=== PATIENT | female | born 1960 | race Caucasian/White ===

== ENCOUNTER 2021-09-03 15:01 | Inpatient (IN) ==
--- NOTE | 2021-09-03 15:33 | Emergency Department Note ---
Impression & Plan Fall due to ice or snow, Tibial plateau fracture, right, Fracture of neck of fibula, Fracture of distal end of fibula ED Provider Note CHIEF COMPLAINT: Fall HISTORY OF PRESENT ILLNESS: Autumn Gimenez is a 60 year old female who presents to the Emergency Department via EMS for evaluation of after suffering a fall approximately 4 hours prior to arrival. At the time of onset, the patient was shoveling snow off of her wooden deck when she slipped on ice and fell onto her right side. She denies hitting her head or losing consciousness during the episode but had significant pain to her right shoulder, wrist, knee, baker and ankle. She was able to crawl over to the table that was on her deck but was not able to pull herself up. After calling for her for about 10 minutes, he saw her outside and was able to help her inside, though she states that she was unable to place any weight on her right leg secondary to pain. The patient sat on a chair to rest and took a dose of Tylenol, however, as her pain did not improve and she was unable to move from the chair, EMS was called and brought her to the ED for further evaluation. Currently, she rates her discomfort as a 10/10 which worsens with attempts of movement. The patient otherwise denies pain to her head, neck, chest, abdomen, pelvis, RUE or RLE. She does have mild pain to her lower back from when she slipped on ice and caught herself several days ago, but unchanged since the fall today. No numbness/tingling. She does not take any anticoagulants/antiplatelets. REVIEW OF SYSTEMS: 10 systems were reviewed and were negative unless otherwise stated in HPI as above PHYSICAL EXAM: VITALS: Vitals are noted on the nurse's note and reviewed by myself. Vital signs stable. General: Resting in bed, no acute distress HEENT: Normocephalic, atraumatic, PERRL, EOMI, oropharynx clear Neck: No mid-line cervical tenderness, ROM intact without pain Resp: Good inspiratory effort on room air, lung sounds clear bilaterally, no tenderness to palpation of the chest wall CV: Regular rate and rhythm, peripheral pulses palpated Back: No midline tenderness to the thoracic spine, no midline tenderness to the lumbar spine, no obvious step-offs or deformities, mild tenderness to palpation of the lower perispinal musculature (unchanged today) Abd: Soft, non-tender to palpation MSK: RUE: Edema about the right wrist with tenderness to palpation especially over the radial aspect. Able to move fingers, sensation and radial pulse intact. ROM of the wrist limited secondary to pain. Tender to palpation over the anterior right shoulder and ROM limited secondary to pain. No tenderness to palpation of the humerus, elbow or proximal forearm. RLE: Edema about the knee and ecchymosis/edema over the lateral ankle with tenderness to palpation over the knee, tib/fib and ankle. ROM of the knee and ankle limited secondary to pain, able to move toes, sensation and d/p pulse intact. No tenderness to palpation of the hip or thigh. LUE/LLE: No tenderness to palpation, ROM intact without pain, sensation and radial/d/p pulses intact. Neuro: Awake, alert and oriented x 3, interacting and answering questions appropriately Differential diagnosis includes fracture, subluxation, dislocation, contusion, ligamentous injury, neurovascular, as well as other pathologies were considered EMERGENCY DEPARTMENT COURSE: Physical exam and history were performed. Nursing triage notes, EMR, and medication list were personally reviewed. Patient appears to have pain to her right shoulder, wrist, knee, and ankle after suffering a fall onto her right side when she slipped on ice approximately 4 hours prior to arrival. She denied hitting her head or losing consciousness during the episode. Additional history as described above. See exam as above. The patient was offered pain medication but initially declined. X-rays were obtained of the right shoulder/wrist and were reviewed by radiologist and myself as below. Images were negative for acute fractures, dislocations or other bony abnormalities. X-rays were also obtained of the right knee, tib/fib and ankle, also reviewed by radiologist and myself as below. Of note, she did have a comminuted, nondisplaced fracture involving the tibial plateau with intra-articular effusion at the knee joint. She was also noted to have an oblique fracture to the distal fibula. Upon reevaluation, the patient was still having discomfort and now agreed for a dose of pain medication. She was given Toradol 15 mg. I discussed the results of the above findings with her at bedside. I did contact Dr. Lujan of orthopedics and discussed her case as well. He suggested placing the patient in a long-leg splint and stated that she would be okay to follow-up with Dr. Valdovinos who she currently follows with in his office tomorrow. I did obtain a CAT scan of the patient's right knee to further evaluate the fracture pattern. This did revisualize the tibial plateau fracture but also showed an impacted, nondisplaced fracture of the neck of the fibula. The patient was placed in an Ortho-Glass splint as follows: Splint placement: Splint: Right long leg Ortho-Glass Indication: Right tibial plateau fracture, right fibular neck fracture, right distal fibular fracture Ortho-Glass splint was applied by the ED nursery technician under my supervision. Neurovascular status reassessed by myself status post splint placement and was intact. After the patient was placed in a splint, she was having additional pain and was given a dose of oxycodone 5 mg. Nursing staff did attempt to help her up to use the walker several times, however she was having too much pain in her right wrist to support herself and was unable to ambulate. We did attempt to place a splint on her right wrist as well for extra support, however she was still unable to get up. Due to her ambulatory dysfunction[facility] and agreed to evaluate her for ongoing management. The patient verbalized her understanding and agreement with the above treatment plan. The chart was completed utilizing [employer] Speech Voice Recognition Software. Grammatical errors, random word insertions, pronoun errors, and incomplete sentences are an occasional consequence of this system due to software limitations, ambient noise, and hardware issues. Any formal questions or concerns about the content, text, or information contained within the body of this dictation should be directly addressed to the provider for clarification. Past Med/Surg History Medical History Medial meniscus tear Tendinitis of right rotator cuff Surgical History No pertinent past surgical history Social History Smoking Status: Current every day smoker Tobacco Type: Cigarettes Feels Safe at Home: Yes Allergies Allergies Allergy/AdvReac Type Severity Reaction Status Date / Time No Known Allergies Allergy Verified 09/03/21 16:21 Home Meds Previous Rx's Medication Instructions Recorded oxycodone 5 mg tablet 5 mg PO Q4H PRN #18 tab 09/03/21 Results & Data (ED) Vital Signs Vital Signs - 24 hr 09/03/21 15:12 09/03/21 16:34 09/03/21 20:00 Temperature 37.2 C Temperature Source Oral Pulse Rate 94 H Pulse Rate [Left] 88 74 Pulse Rhythm Regular Pulse Rhythm [Left] Regular Regular Pulse Strength Normal Pulse Strength [Left] Normal Normal Respiratory Rate 16 18 18 Respiratory Effort / Characteristics Non-Labored Spontaneous Non-Labored Spontaneous Non-Labored Respiratory Depth Normal Normal Normal Respiratory Pattern Regular Blood Pressure 114/77 Blood Pressure [Left Arm] 120/71 124/74 Blood Pressure Mean 89 Blood Pressure Mean [Left Arm] 87 90 Blood Pressure Position Lying Blood Pressure Position [Left Arm] Lying Lying Pulse Oximetry 98 94 98 Oxygen Delivery Method Room Air Room Air Room Air Sepsis Recent Fever Within 48 Hours No Sepsis New/Unexplained Change in Mental Status N/A Sepsis Action Taken by Nursing No Action Required 09/03/21 23:00 09/04/21 00:06 Temperature Temperature Source Pulse Rate Pulse Rate [Left] 90 95 H Pulse Rhythm Pulse Rhythm [Left] Pulse Strength Pulse Strength [Left] Respiratory Rate 16 20 Respiratory Effort / Characteristics Respiratory Depth Respiratory Pattern Blood Pressure Blood Pressure [Left Arm] 129/78 108/77 Blood Pressure Mean Blood Pressure Mean [Left Arm] 95 87 Blood Pressure Position Blood Pressure Position [Left Arm] Pulse Oximetry 95 95 Oxygen Delivery Method Room Air Room Air Sepsis Recent Fever Within 48 Hours Sepsis New/Unexplained Change in Mental Status Sepsis Action Taken by Nursing Laboratory Data Lab Results 09/03/21 Range/Units 22:00 SARS-CoV-2, RNA, NAAT NEGATIVE (NEGATIVE) Administered Medications Discontinued Medications Ketorolac Tromethamine (Ketorolac Tromethamine 15 Mg/Ml Vial) 15 mg IV NOW ONE Stop: 09/03/21 17:18 Last Admin: 09/03/21 17:40 Dose: 15 mg Documented by: [id number] Oxycodone HCl (Oxycodone Ir Home Pack) 1 homepack PO UD ONE Stop: 09/03/21 19:37 Last Admin: 09/03/21 22:59 Dose: Not Given Documented by: [id number] Oxycodone HCl (Oxycodone Hcl Ir 5 Mg Tab (Immediate Release)) 5 mg PO NOW STA Stop: 09/03/21 20:44 Last Admin: 09/03/21 20:48 Dose: 5 mg Documented by: [id number] Imaging Data Radiologist's Impression: Ankle X-Ray 09/03/21 15:20 XR ankle RT min 3V routine, XR tibia fibula RT 2V, XR knee RT 1 or 2V routine CLINICAL HISTORY: fall, pain. COMPARISON STUDY: No previous studies for comparison. TECHNIQUE: 3 right knee, AP and lateral right tibia and fibula and 3 right ankle views FINDINGS: Bones: There is a comminuted, nondisplaced fracture of the tibial plateau with transverse and vertical component seen particularly medially. There is no evidence for significant cortical offset at the articular margin of the knee joint. There is a moderate size intra-articular effusion. There is a second, oblique fracture present involving the distal fibular metadiaphysis. It is nondisplaced. The remainder of the tibia and fibula are intact. There is no lytic or blastic lesion. Joints: The ankle joint space is maintained. The bones are in anatomic alignment. Soft tissues: There is no focal soft tissue abnormality. There is no radiopaque foreign body. IMPRESSION: 1. Comminuted, nondisplaced fracture involving the tibial plateau. 2. Oblique fracture of the distal femur metadiaphysis. 3. Intra-articular effusion at the knee joint. ACT 112: Negative or not required by law. Electronically signed by: Cem Oconnor M.D. 09/03/2021 4:48 PM Knee X-Ray 09/03/21 15:20 XR ankle RT min 3V routine, XR tibia fibula RT 2V, XR knee RT 1 or 2V routine CLINICAL HISTORY: fall, pain. COMPARISON STUDY: No previous studies for comparison. TECHNIQUE: 3 right knee, AP and lateral right tibia and fibula and 3 right ankle views FINDINGS: Bones: There is a comminuted, nondisplaced fracture of the tibial plateau with transverse and vertical component seen particularly medially. There is no evidence for significant cortical offset at the articular margin of the knee joint. There is a moderate size intra-articular effusion. There is a second, oblique fracture present involving the distal fibular metadiaphysis. It is nondisplaced. The remainder of the tibia and fibula are intact. There is no lytic or blastic lesion. Joints: The ankle joint space is maintained. The bones are in anatomic alignment. Soft tissues: There is no focal soft tissue abnormality. There is no radiopaque foreign body. IMPRESSION: 1. Comminuted, nondisplaced fracture involving the tibial plateau. 2. Oblique fracture of the distal femur metadiaphysis. 3. Intra-articular effusion at the knee joint. ACT 112: Negative or not required by law. Electronically signed by: Cem Oconnor M.D. 09/03/2021 4:48 PM Shoulder X-Ray 09/03/21 15:20 XR shoulder RT min 2V routine CLINICAL HISTORY: Fall, pain. COMPARISON STUDY: No previous studies for comparison. TECHNIQUE: 3 right shoulder views FINDINGS: Bones: Bones are osteopenic. There is no evidence for an acute fracture or dislocation. There is no lytic or blastic lesion. Joints: Mild degenerative changes are seen involving the acromioclavicular joint. The bones are in anatomic alignment. Soft tissues: There is no focal soft tissue abnormality. There is no radiopaque foreign body. IMPRESSION: No acute osseous pathology. Osteopenia with mild degenerative change at the AC joint. ACT 112: Negative or not required by law. Electronically signed by: Cem Oconnor M.D. 09/03/2021 4:57 PM Tibia/Fibula X-Ray 09/03/21 15:20 XR ankle RT min 3V routine, XR tibia fibula RT 2V, XR knee RT 1 or 2V routine CLINICAL HISTORY: fall, pain. COMPARISON STUDY: No previous studies for comparison. TECHNIQUE: 3 right knee, AP and lateral right tibia and fibula and 3 right ankle views FINDINGS: Bones: There is a comminuted, nondisplaced fracture of the tibial plateau with transverse and vertical component seen particularly medially. There is no evidence for significant cortical offset at the articular margin of the knee joint. There is a moderate size intra-articular effusion. There is a second, oblique fracture present involving the distal fibular metadiaphysis. It is nondisplaced. The remainder of the tibia and fibula are intact. There is no lytic or blastic lesion. Joints: The ankle joint space is maintained. The bones are in anatomic alignment. Soft tissues: There is no focal soft tissue abnormality. There is no radiopaque foreign body. IMPRESSION: 1. Comminuted, nondisplaced fracture involving the tibial plateau. 2. Oblique fracture of the distal femur metadiaphysis. 3. Intra-articular effusion at the knee joint. ACT 112: Negative or not required by law. Electronically signed by: Cem Oconnor M.D. 09/03/2021 4:48 PM Wrist X-Ray 09/03/21 15:21 XR wrist RT min 3V routine CLINICAL HISTORY: fall, pain. COMPARISON STUDY: No previous studies for comparison. TECHNIQUE: 4 right wrist views FINDINGS: Bones: There is no evidence for an acute fracture or dislocation. There is no lytic or blastic lesion. Joints: The joint spaces are maintained. The bones are in anatomic alignment. Soft tissues: There is no focal soft tissue abnormality. There is no radiopaque foreign body. IMPRESSION: No acute osseous pathology. ACT 112: Negative or not required by law. Electronically signed by: Cem Oconnor M.D. 09/03/2021 4:[address] 09/03/21 17:11 CT knee RT wo con CLINICAL HISTORY: Follow-up right tibial plateau fracture. Status post fall with right knee pain COMPARISON STUDY: Standard radiographs of the knee from 09/03/2021 CT DOSE: 171.87 mGy.cm TECHNIQUE: Standard CT of the right knee is performed without IV contrast. Multiplanar reconstruction is performed. A dose lowering technique was utilized adhering to the principles of ALARA. FINDINGS: Bones: There is seen radiographically, there is a comminuted, essentially nondisplaced fracture of the tibial plateau. Vertically oriented nondisplaced fractures seen involving the inner aspect of the lateral tibial plateau. It extends posteriorly. Oblique comminuted fracture of the medial tibial plateau is also present which is again essentially nondisplaced. There is also a nondisplaced, impacted fracture of the proximal fibular neck. There are no lytic or blastic lesions. Joints: The joint spaces are maintained. There is a large intra-articular effusion. The bones are in anatomic alignment. Soft tissues: There is no focal soft tissue swelling. There are no focal fluid collections. IMPRESSION: 1. Comminuted, essentially nondisplaced fracture of the tibial plateau as described above. 2. There is also an impacted, nondisplaced fracture of the neck of the fibula. 3. Large intra-articular effusion. ACT 112: Negative or not required by law. Electronically signed by: Cem Oconnor M.D. 09/03/2021 6:44 PM Discharge Plan Visit Data Chief Complaint: Fall Stated Complaint: FALL, R WRIST, KNEE, SHOULDER & ANKLE PAIN ED Provider: Carlyn Mathew ED Midlevel Provider: Renetta Shearer Discharge Problem: Fall due to ice or snow, Tibial plateau fracture, right, Fracture of neck of fibula, Fracture of distal end of fibula Patient Disposition: Admitted As Inpatient Condition: Good Prescriptions Prescriptions: New oxycodone 5 mg tablet 5 mg PO Q4H PRN (Reason: pain) Qty: 18 RF: 0 Referrals Referrals: Zhen Lujan MD [Physician] - Gurdeep Freeman DO [Primary Care Provider] - Discharge Problem: Fall due to ice or snow Qualifiers: Encounter type: initial encounter Qualified Code(s): W00.9XXA - Unspecified fall due to ice and snow, initial encounter Tibial plateau fracture, right Qualifiers: Encounter type: initial encounter Fracture type: closed Qualified Code(s): S82.141A - Displaced bicondylar fracture of right tibia, initial encounter for closed fracture Fracture of neck of fibula Qualifiers: Encounter type: initial encounter Fracture type: closed Laterality: right Qualified Code(s): S82.831A - Other fracture of upper and lower end of right fibula, initial encounter for closed fracture
--- NOTE | 2021-09-03 16:50 | XRay Report ---
XR ankle RT min 3V routine, XR tibia fibula RT 2V, XR knee RT 1 or 2V routine CLINICAL HISTORY: fall, pain. COMPARISON STUDY: No previous studies for comparison. TECHNIQUE: 3 right knee, AP and lateral right tibia and fibula and 3 right ankle views FINDINGS: Bones: There is a comminuted, nondisplaced fracture of the tibial plateau with transverse and vertica l component seen particularly medially. There is no evidence for significant cortical offset at the a rticular margin of the knee joint. There is a moderate size intra-articular effusion. There is a second, oblique fracture present involving the distal fibular metadiaphysis. It is nondisp laced. The remainder of the tibia and fibula are intact. There is no lytic or blastic lesion. Joints: The ankle joint space is maintained. The bones are in anatomic alignment. Soft tissues: There is no focal soft tissue abnormality. There is no radiopaque foreign body. IMPRESSION: 1. Comminuted, nondisplaced fracture involving the tibial plateau. 2. Oblique fracture of the distal femur metadiaphysis. 3. Intra-articular effusion at the knee joint. ACT 112: Negative or not required by law. Electronically signed by: Cem Oconnor M.D. 09/03/2021 4:48 PM
--- NOTE | 2021-09-03 16:58 | XRay Report ---
XR shoulder RT min 2V routine CLINICAL HISTORY: Fall, pain. COMPARISON STUDY: No previous studies for comparison. TECHNIQUE: 3 right shoulder views FINDINGS: Bones: Bones are osteopenic. There is no evidence for an acute fracture or dislocation. There is no l ytic or blastic lesion. Joints: Mild degenerative changes are seen involving the acromioclavicular joint. The bones are in an atomic alignment. Soft tissues: There is no focal soft tissue abnormality. There is no radiopaque foreign body. IMPRESSION: No acute osseous pathology. Osteopenia with mild degenerative change at the AC joint. ACT 112: Negative or not required by law. Electronically signed by: Cem Oconnor M.D. 09/03/2021 4:57 PM
--- NOTE | 2021-09-03 17:00 | XRay Report ---
XR wrist RT min 3V routine CLINICAL HISTORY: fall, pain. COMPARISON STUDY: No previous studies for comparison. TECHNIQUE: 4 right wrist views FINDINGS: Bones: There is no evidence for an acute fracture or dislocation. There is no lytic or blastic lesion . Joints: The joint spaces are maintained. The bones are in anatomic alignment. Soft tissues: There is no focal soft tissue abnormality. There is no radiopaque foreign body. IMPRESSION: No acute osseous pathology. ACT 112: Negative or not required by law. Electronically signed by: Cem Oconnor M.D. 09/03/2021 4:59 PM
[2021-09-03] MEDS ORDERED: KETOROLAC TROMETHAMINE 15 MG/ML VIAL IV ONE (17:17)
--- NOTE | 2021-09-03 18:46 | CT Scan Report ---
CT knee RT wo con CLINICAL HISTORY: Follow-up right tibial plateau fracture. Status post fall with right knee pain COMPARISON STUDY: Standard radiographs of the knee from 09/03/2021 CT DOSE: 171.87 mGy.cm TECHNIQUE: Standard CT of the right knee is performed without IV contrast. Multiplanar reconstruction is performed. A dose lowering technique was utilized adhering to the principles of ALARA. FINDINGS: Bones: There is seen radiographically, there is a comminuted, essentially nondisplaced fracture of th e tibial plateau. Vertically oriented nondisplaced fractures seen involving the inner aspect of the l ateral tibial plateau. It extends posteriorly. Oblique comminuted fracture of the medial tibial plate au is also present which is again essentially nondisplaced. There is also a nondisplaced, impacted fracture of the proximal fibular neck. There are no lytic or b lastic lesions. Joints: The joint spaces are maintained. There is a large intra-articular effusion. The bones are in anatomic alignment. Soft tissues: There is no focal soft tissue swelling. There are no focal fluid collections. IMPRESSION: 1. Comminuted, essentially nondisplaced fracture of the tibial plateau as described above. 2. There is also an impacted, nondisplaced fracture of the neck of the fibula. 3. Large intra-articular effusion. ACT 112: Negative or not required by law. Electronically signed by: Cem Oconnor M.D. 09/03/2021 6:44 PM
[2021-09-03] MEDS ORDERED: oxyCODONE IR HOME PACK PO ONE (19:36)
[2021-09-03] MEDS ORDERED: oxyCODONE HCL IR 5 MG TAB (IMMEDIATE RELEASE) PO STA (20:43)
[2021-09-04] MEDS ORDERED: ACETAMINOPHEN 325 MG TAB PO PRN (00:54)
[2021-09-04] MEDS ORDERED: ONDANSETRON INJ 2 MG/ML 2 ML VIAL IV PRN (00:54)
[2021-09-04] MEDS ORDERED: D5W AND NSS 1,000 ML IV SCH (00:54)
[2021-09-04] MEDS ORDERED: POLYETHYLENE (MIRALAX) 17 GM PACK PO PRN (00:54)
[2021-09-04] MEDS: ZOLPIDEM TARTRATE 5 MG TAB PO PRN (01:55)
--- NOTE | 2021-09-04 02:43 | History and Physical Report ---
DATE OF ADMISSION: 09/03/2021. CHIEF COMPLAINT: Status post fall and right tibial plateau fracture and distal femur fracture. HISTORY OF PRESENT ILLNESS: This is a 60-year-old female with past medical history significant for obesity. Presents with a fall at home. She fell on the deck in the ice and she was having difficulty ambulating and brought in here and found to have right distal femur fracture and tibial plateau fracture. ER discussed with orthopedics who recommended a long splint, which was placed. The patient wanted to go home, but she was also having pain in the shoulder and the right wrist and she was not able to ambulate with a walker. So, we were called for admission. Somewhat tearful that she was not able to go home. She says she was never in the hospital before. About 10 days ago, she almost slipped from the deck and has back pain and she was taking [id number] pain medications. Other than that, she was not taking any other medications. Currently hemodynamics are stable. While resting, pain is okay. Denies any headache. She did not hit her head and no headache, no blurred visions, no runny nose, no sore throat, no cough, no chest pain, no shortness of breath, no nausea, no vomiting, no abdominal pain. Normal bowel and bladder movements. Before the fall, otherwise ambulatory status was good. ALLERGIES: No known drug allergies. PAST MEDICAL HISTORY: As mentioned above. PAST SURGICAL HISTORY: Colonoscopy. MEDICATIONS: None. FAMILY HISTORY: Significant for father had skin cancer, mother has diabetes and hypertension, paternal grandfather has diabetes. SOCIAL HISTORY: . Smokes half pack a day. No alcohol, no drug use. REVIEW OF SYSTEMS: As per HPI. Rest of the review of systems is negative. PHYSICAL EXAMINATION: GENERAL: The patient is of moderate build, not in acute distress. VITAL SIGNS: Temperature 37.2, pulse 74, respiratory rate 18, blood pressure 124/74, oxygen 98% on room air. HEENT: Pupils equal, round and reactive to light. Oral mucosa moist. NECK: No JVD, no neck masses. CARDIOVASCULAR: S1 and S2 heard. Regular rate and rhythm. No murmur, no gallop. RESPIRATORY SYSTEM: Normal AP diameter. No accessory muscle use. No wheezing, no crackles. ABDOMEN: Soft, bowel sounds present, nontender, no distention. CENTRAL NERVOUS SYSTEM: Alert and oriented. No facial droop. Speech is clear. Insight is good. EXTREMITIES: Right lower extremity is in a long splint. Able to move her left lower extremity. No edema seen in the left lower extremity. LABORATORY DATA: SARS-CoV-2 negative. IMAGING STUDIES: Right CT scan of the knee, comminuted essentially nondisplaced fracture of the tibial plateau, nondisplaced fracture of neck of the fibula. Wrist x-ray of the right, no acute findings. Tibia and fibula x-ray on the right side, nondisplaced fracture involving the tibial plateau. Oblique fracture of the distal femur metadiaphysis. Intra-articular effusion of the knee joint. Right shoulder x-ray, no acute findings. Knee x-ray of the right side, comminuted nondisplaced fracture involving the tibial plateau. ASSESSMENT AND PLAN: This is a 60-year-old female who presents with a fall and found to have right distal femur fracture, tibial plateau fracture, and nondisplaced fracture of the neck of the fibula. 1. Right distal femur fracture, right fracture of the neck of the fibula, right tibial plateau fracture, status post long splint. Since she also had injury to the right wrist and shoulder, she is not able to ambulate with a walker. So we are admitting the patient for possible rehab placement. PT/OT. Social service to help with discharge planning. We will consult orthopedics while the patient is in the hospital. Pain control, gentle fluids. 2. Deep venous thrombosis prophylaxis: Lovenox. DISPOSITION: Admit to medical floor. Social service to help with discharge planning. Job ID: [id number] [facility]
[2021-09-04] MEDS: oxyCODONE HCL IR 5 MG TAB (IMMEDIATE RELEASE) PO PRN (05:44)
[2021-09-04 06:44] LABS: Basophils # (auto) 0.01 K/uL (0-0.2); Basophils % (auto) 0.1 %; Eosinophils # (auto) 0.05 K/uL (0-0.5); Eosinophils % (auto) 0.5 %; Hematocrit (blood only) 39.5 % (37-47); Hemoglobin 13.1 g/dL (12.0-16.0); Immature Granulocytes # (auto) 0.03 K/uL (0.00-0.02); Immature Granulocytes % (auto) 0.3 %; Lymphocytes # (auto) 3.24 K/uL (1.2-3.4); Lymphocytes % (auto) 30.4 %; Mean Corpuscular Hemoglobin 30.3 pg (25-34); Mean Corpuscular Hgb Conc 33.2 g/dL (32-36); Mean Corpuscular Volume 91.4 fL (80-100); Mean Platelet Volume 10.9 fL (7.4-10.4); Monocytes # (auto) 1.17 K/uL (0.11-0.59); Neutrophils # (auto) 6.17 K/uL (1.4-6.5); Neutrophils % (auto) 57.7 %; Platelet Count 204 K/uL (130-400); RDW Coefficient of Variation 15.1 % (11.5-14.5); RDW Standard Deviation 50.8 fL (36.4-46.3); Red Blood Count 4.32 M/uL (4.2-5.4); White Blood Count 10.67 K/uL (4.8-10.8)
[2021-09-04 06:55] LABS: BUN Creatinine Ratio 44.4 (10-20); Calcium 8.4 mg/dl (8.5-10.1); Creatinine Clr Calc Pharmacy 144.5 ml/min; Est GFR (Non-African American) 110.4 ml/min; Magnesium 1.7 mg/dl (1.7-2.4); Potassium 3.6 mmol/L (3.5-5.1)
[2021-09-04] MEDS: ACETAMINOPHEN 325 MG TAB PO SCH ×3 (08:36→20:12)
[2021-09-04] MEDS: ENOXAPARIN INJ 40 MG/0.4 ML SYR SQ SCH (09:02)
[2021-09-04] MEDS: LIDOCAINE 5% 1 PATCH TD SCH (11:19)
[2021-09-04] MEDS: SODIUM CHLORIDE 0.9% 1000ML 1,000 ML IV SCH (11:19)
--- NOTE | 2021-09-04 13:58 | Hospitalist Progress Note ---
Date of Service September 04, 2021 Assessment & Plan (1) Fall due to ice or snow: (2) Tibial plateau fracture, right: (3) Fracture of neck of fibula: Plan: ASSESSMENT AND PLAN: This is a 60-year-old female who presents with a fall and found to have right distal femur fracture, tibial plateau fracture, and nondisplaced fracture of the neck of the fibula. 1. Right distal femur fracture, right fracture of the neck of the fibula, right tibial plateau fracture, status post long splint. Right shoulder, wrist pain Status post fall Patient still having significant pain at this time Scheduled Tylenol, as needed tramadol and oxycodone Gentle IV fluids Lovenox for DVT prophylaxis May need further imaging/MRI of the right shoulder Will defer further imaging to orthopedic service Continue PT/OT 2. Deep venous thrombosis prophylaxis: Lovenox. DISPOSITION: Pending May need rehab plan of care discussed with patient in detail and at length all questions answered she is understanding, agreeable, comfortable with the plan of care Admission and Anticipated Discharge Date Admission Date: September 03, 2021 Subjective Follow-up for right knee fracture, right shoulder, right wrist pain, status post fall Seen resting in bed, not in distress Very pleasant, reports significant discomfort of the right shoulder and right wrist, with full range of motion due to pain Also reporting significant pain over the right knee, with full range of motion Otherwise, no chest pain, palpitations, dizziness Denies head trauma, no headache, nausea, fever/chills No other symptoms Review of Systems Review of Systems: all noted and negative except for above Physical Exam Physical Exam: General- oriented x 3, not in distress, speaks in sentences with no effort or accessory muscle use Head- atraumatic Eyes- PERRL, EOMI, anicteric ENT- oropharynx clear Neck- supple, no JVD, no adenopathy, no thyromegaly; carotids +2/2, no bruits appreciated Lungs- clear to auscultation bilaterally, no rales/wheezes Heart- normal rate, regular rhythm; no murmur, no gallop, no rub appreciated Abdomen- normal bowel sounds, nondistended, soft, nontender, no masses or hepatosplenomegaly Extremities-right lower extremity: Splint in place, with heavy bandage Left lower extremity: No pretibial edema, no calf tenderness; peripheral pulses intact Right shoulder: Mild warmth, edema, no hematoma, very limited range of motion due to pain Right wrist: Splint in place, can move all fingers, no edema of the fingers Neuro- alert, oriented x 3; CN 2-12 grossly intact; motor 5/5 bilaterally;sensation 100% on all extremities; no other gross focal neurologic deficits Skin- warm & dry Results & Data Results & Data ([facility]) Vital Signs (Past 12 Hours) Vital Signs Temp Pulse Resp BP Pulse Ox 09/04/21 07:22 37.4 C 92 H 16 129/76 92 all noted and reviewed including below (1) Fall due to ice or snow Encounter type: initial encounter Qualified Code(s): W00.9XXA - Unspecified fall due to ice and snow, initial encounter (2) Tibial plateau fracture, right Encounter type: initial encounter Fracture type: closed Qualified Code(s): S82.141A - Displaced bicondylar fracture of right tibia, initial encounter for closed fracture (3) Fracture of neck of fibula Encounter type: initial encounter Fracture type: closed Laterality: right Qualified Code(s): S82.831A - Other fracture of upper and lower end of right fibula, initial encounter for closed fracture
--- NOTE | 2021-09-04 14:41 | Orthopedic Consultation ---
Date of Service September 04, 2021 Assessment & Plan (1) Tibial plateau fracture, right: Fortunately these injuries can be treated nonoperatively. She is currently in a well fitting posterior splint that includes her knee and her ankle. She will be nonweightbearing for at least 6 weeks. It will take 3 months for the bones to heal. They are well aligned and right now surgery is not indicated. She will likely be ambulating mostly with a wheelchair for the next 6 to 12 weeks. Therapy has been consulted for transferring and help with ADLs. With regards to her right shoulder she has difficult time doing forward elevation. She may have a rotator cuff tear but is difficult to tell at this time. The Lidoderm patch seems to be helping and I can give her an injection in the office if needed. With regards to her right wrist there is a questionable nondisplaced impaction fracture at the wrist. Is difficult to tell. In any case, this can be treated in the cock-up wrist splint that she has on. She is orthopedically stable for discharge when medically ready. She can follow-up in my office in 2 weeks for repeat x-rays. Mostly following the tibial plateau fracture closely to make sure there is no further displacement. I talked to her extensively at bedside about the estimated recovery. She will be nonweightbearing on the right leg for 6 weeks. She may be partial weightbearing from 6 to 12 weeks, depending on the x-rays, and full weightbearing at 12 weeks. (2) Fracture of neck of fibula: (3) Fracture of distal end of fibula: History of Present Illness Reason for Consultation: Right tibial plateau fracture. Requesting Physician: . Attending Physician: Blake Winter MD Autumn is a pleasant 60-year-old female who slipped and fell on her deck yesterday. She had a twisting injury to her right knee. She had pain in her knee and her ankle. She also fell on her right outstretched hand and injured her right shoulder. She came to the emergency room. X-rays of the right shoulder and the right wrist were negative. She has weakness in the shoulder and she has pain in the wrist. She was placed in a cock-up wrist splint. X- rays of the right knee showed a tibial plateau fracture and a proximal fibular fracture. X-rays of the right ankle showed a distal fibular fracture. She was placed in a long-leg posterior splint. She was admitted to the medical service. Orthopedics was consulted to evaluate and treat. Allergies Allergy/AdvReac Type Severity Reaction Status Date / Time No Known Allergies Allergy Verified 09/03/21 16:21 Home Medications Medication Instructions Recorded Confirmed Type oxycodone 5 mg tablet 5 mg PO Q4H PRN #18 tab 09/03/21 Rx Past Med/Surg History Medical History Medial meniscus tear Tendinitis of right rotator cuff Surgical History No pertinent past surgical history Social History Smoking Status: Current every day smoker Tobacco Type: Cigarettes Cigarettes Per Day: 7; Do You Dip or Chew Tobacco: No; Tobacco Cessation Education Requested by Patient: No Hx Alcohol Use: Yes Hx Substance Use: No Preferred Language: Irish Communication Ability: Effective 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 Physical Exam On physical examination, she has a long-leg posterior splint on her right leg. She is active motion of her toes. I did not take down the splint. Examination of her right shoulder she is unable to fully elevate her right arm. She can do it passively but not actively. She has a lidocaine patch on her right shoulder. Examination of her right wrist she has a lot of pain over the radiocarpal joint. She has a cock-up wrist splint in place. Constitutional WD/WN, vitals as above Eyes PERRL, conjunctivae normal, anicteric sclerae ENMT external ear and nose normal, oropharynx normal Neck trachea midline, no thyromegaly Respiratory normal respiratory effort Cardiovascular RRR, no murmur, no edema Gastrointestinal (Abdomen) normal bowel sounds, soft, nontender, no hepatosplenomegaly Psychiatric A+Ox3, euthymic affect Results & Data Results & Data Laboratory Results . Diagnostic Findings X-rays of the right knee show a comminuted nondisplaced tibial plateau fracture. There is also a nondisplaced fracture of the fibular head. CT scan of the right knee confirms a nondisplaced comminuted tibial plateau fracture in the proximal fibular fracture. X-rays of the right ankle show a nondisplaced fracture of the distal fibular metaphysis. X-rays of the right shoulder are negative. There is no evidence of fracture dislocation. X-rays of the right wrist were read as negative but there is a questionable lucency that goes intra-articular on the distal radius. There is a chance she has a slight impaction fracture in this area. PG Care Time/CCT Total # of Minutes Spent Total Time Spent with Patient: Total time spent is greater than 50% in coordination of care (as documented) at patient's floor/unit and/or counseling patient: Coding Level of Care Code 00785 Inpt Consult Level 4 Diagnoses Tibial plateau fracture, right S82.141A Encounter type: initial encounter Fracture type: closed Fracture of neck of fibula S82.831A Encounter type: initial encounter Fracture type: closed Laterality: right Fracture of distal end of fibula S82.839A (1) Tibial plateau fracture, right Encounter type: initial encounter Fracture type: closed Qualified Code(s): S82.141A - Displaced bicondylar fracture of right tibia, initial encounter for closed fracture (2) Fracture of neck of fibula Encounter type: initial encounter Fracture type: closed Laterality: right Qualified Code(s): S82.831A - Other fracture of upper and lower end of right fibula, initial encounter for closed fracture
[2021-09-05] MEDS: oxyCODONE HCL IR 5 MG TAB (IMMEDIATE RELEASE) PO PRN (00:15)
[2021-09-05] MEDS: ACETAMINOPHEN 325 MG TAB PO SCH ×4 (02:38→19:51)
[2021-09-05] MEDS: SODIUM CHLORIDE 0.9% 1000ML 1,000 ML IV SCH ×2 (02:41→19:52)
--- NOTE | 2021-09-05 06:29 | Orthopedic Progress Note ---
Date of Service September 05, 2021 Assessment & Plan (1) Tibial plateau fracture, right: On over the fractures with her again at bedside. The main fracture is the tibial plateau fracture. Because of this she will be nonweightbearing for at least 6 weeks. She will be partial weightbearing from 6 weeks to 12 weeks, and then weightbearing as tolerated after 12 weeks. We will follow the fracture closely with serial x-rays. I will see her in the office in 2 weeks for x-rays, at which time we will likely get her out of the posterior splint and put her in a more functional knee brace. She also was nondisplaced fractures at both the proximal and distal ends of the fibula. She has a questionable cortical fracture of the distal radius. She also possibly has a right rotator cuff tear. Fortunately these injuries can be treated nonoperatively. She is orthopedically stable for discharge when medically ready. She will need to be seen by physical therapy and occupational therapy today to work on ADLs and compliance with nonweightbearing status. Full orthopedic discharge instructions were placed in the discharge summary. If you have any further questions please feel free to contact me personally on my cell phone at [phone] Subjective Patient was seen and examined at bedside again this morning. Overall she is doing fairly well. She is having some soreness in her right leg which is to be expected. She still cannot forward elevate her right shoulder. She has no new complaints. Review of Systems All systems reviewed & are unremarkable except as noted in HPI & below. Physical Exam On physical examination of the right leg, there is posterior splint in place. She has motion of her toes. The dressing is clean and dry and well fitting. She has a cock-up wrist splint to her right wrist with some swelling and pain at the radiocarpal joint. She cannot do active forward elevation of her right shoulder. Results & Data Results & Data Laboratory Results . Diagnostic Findings . PG Care Time/CCT Total # of Minutes Spent Total Time Spent with Patient: Total time spent is greater than 50% in coordination of care (as documented) at patient's floor/unit and/or counseling patient: Coding Level of Care Code 97803 Subseq Hosp Care Lvl 2 Diagnoses Tibial plateau fracture, right S82.141A Encounter type: initial encounter Fracture type: closed (1) Tibial plateau fracture, right Encounter type: initial encounter Fracture type: closed Qualified Code(s): S82.141A - Displaced bicondylar fracture of right tibia, initial encounter for closed fracture
[2021-09-05] MEDS: ENOXAPARIN INJ 40 MG/0.4 ML SYR SQ SCH (08:14)
[2021-09-05] MEDS: LIDOCAINE 5% 1 PATCH TD SCH (08:14)
--- NOTE | 2021-09-05 11:21 | Hospitalist Progress Note ---
Date of Service September 05, 2021 Assessment & Plan (1) Fall due to ice or snow: (2) Tibial plateau fracture, right: (3) Fracture of neck of fibula: Plan: This is a 60-year-old female who is otherwise healthy presented to ED on 09/04/2021 with a fall and found to have right distal femur fracture, tibial plateau fracture, and nondisplaced fracture of the neck of the fibula. 1. Right distal femur fracture, right fracture of the neck of the fibula, right tibial plateau fracture, status post long splint. Right shoulder, wrist pain ? Nondisplaced impaction fracture to R wrist per Ortho Status post fall Patient still having significant pain at this time Scheduled Tylenol, as needed tramadol and oxycodone Gentle IV fluids Lovenox for DVT prophylaxis Currently all fractures nonoperative Awaiting PT/OT evals, Pt will be mostly wheelchair-bound for the next 6 to 12 weeks given nonweightbearing status to right lower extremity Per orthopedics nonweightbearing for at least 6 weeks and then partial weightbearing in 6 to 12 weeks then weightbearing as tolerated after 12 weeks. She will follow closely with orthopedics in the office in 2 weeks for serial x- rays. At this time continue posterior right lower extremity splint also continue right cock-up splint 2. Deep venous thrombosis prophylaxis: Lovenox. DISPOSITION:Pending PT OT eval's determine if patient able to successfully transfer given nonweightbearing status and return to home versus rehab Full code PCP: Pete Patient was seen and examined in collaboration with Dr. Winter, please see addendum Admission and Anticipated Discharge Date Admission Date: September 03, 2021 Supervising Physician Co-Signing Physician Notes Attending Addendum: care coordinated with ANTHONY Quinonez please refer to her notes for full details, I agree with her notes patient seen and examined, records reviewed by myself as well on exam, patient seen resting in bed, not in distress pain well controlled no other symptoms VS noted and reviewed oriented x 3 , not in distress, speaks in sentences with no effort nor accessory muscle use normal rate, regular rhythm, no murmurs clear breath sounds bilaterally non distended, soft, nontender RLE: splint in place LLE: no bipedal edema, erythema, warmth no neuro deficits labs noted and reviewed ASSESSMENT AND PLAN L KNEE FRACTURE, R SHOULDER PAIN, R WRIST PAIN S/P FALL surgery not recommended by Ortho pain control, PT/OT, anticipate d/c home tomorrow other diagnoses and plan of care as per ANTHONY Russo's notes Blake Winter MD Subjective Patient was seen and examined in room 317. Follow-up for status post fall with right tibial plateau fracture and distal femur fracture. Patient is tearful, "how my go to go home like this?" She does live at home with her but currently unable to ambulate with walker due to nonweightbearing status of right lower extremity as well as fracture to right wrist and pain to right shoulder. She did move her bowels yesterday and felt this was, "embarrassing using the bedpan." Currently she denies any pain when at rest. She denies fever, chills, sweats, lightheadedness, dizziness, chest pain, shortness of breath, nausea, vomiting. Overall decreased appetite but she is eating secondary to taking pain medication. Review of Systems Review of Systems: All systems reviewed & are unremarkable except as noted in HPI & below Physical Exam Physical Exam: Gen: WD/WN, female, tearful, NAD, A&O x3 HEENT: Normocephalic, atraumatic, conjunctivae moist, sclerae anicteric, mucous membranes moist. Lung: Clear to Auscultation bilaterally, no wheezes/rales/rhonchi Heart: Regular rate, regular rhythm, no murmurs, rubs, or gallops Abdomen: Soft, NT, ND +BS x 4 Extremities: Right lower extremity splint in place, MVI distally, right wrist brace in place, full active range of motion to right upper extremity, no edema Skin: Warm, no rash, negative turgor. Results & Data Results & Data ([facility]) Vital Signs (Past 12 Hours) Vital Signs Temp Pulse Resp BP Pulse Ox 09/05/21 07:25 37.4 C 83 16 107/56 L 95 Medications Administered Current Inpatient Medications Acetaminophen (Acetaminophen 325 Mg Tab) 650 mg PO Q4H PRN PRN Reason: pain/fever Stop: 10/04/21 00:53 Acetaminophen (Acetaminophen 325 Mg Tab) 650 mg PO Q6H JACK Stop: 10/04/21 07:59 Last Admin: 09/05/21 08:14 Dose: 650 mg Documented by: Enoxaparin Sodium (Enoxaparin Inj 40 Mg/0.4 Ml Syr) 40 mg SQ Q24H [facility] Stop: 10/04/21 08:59 Last Admin: 09/05/21 08:14 Dose: 40 mg Documented by: Sodium Chloride (Nss 1000ml) 1,000 mls @ 60 mls/hr IV .[id number] [facility] Stop: 10/04/21 10:44 Last Admin: 09/05/21 02:41 Dose: 60 mls/hr Documented by: Lidocaine (Lidocaine 5% 1 Patch) 1 patch TD QAM [facility] Stop: 10/04/21 10:44 Last Admin: 09/05/21 08:14 Dose: 1 patch Documented by: Miscellaneous (Remove Lidoderm Patch) 1 ea N/A DAILY@2100 [facility] Stop: 10/04/21 20:59 Last Admin: 09/04/21 20:12 Dose: 1 ea Documented by: Ondansetron HCl (Ondansetron Inj 2 Mg/Ml 2 Ml Vial) 4 mg IV Q6H PRN PRN Reason: Nausea Stop: 10/04/21 00:53 Oxycodone HCl (Oxycodone Hcl Ir 5 Mg Tab (Immediate Release)) 5 mg PO Q4H PRN PRN Reason: Pain Stop: 09/18/21 00:53 Last Admin: 09/05/21 00:15 Dose: 5 mg Documented by: Polyethylene Glycol (Polyethylene (Miralax) 17 Gm Pack) 17 gm PO DAILY PRN PRN Reason: Constipation Stop: 10/04/21 00:53 Zolpidem Tartrate (Zolpidem Tartrate 5 Mg Tab) 5 mg PO HS PRN PRN Reason: Sleep Stop: 10/04/21 01:35 Last Admin: 09/04/21 01:55 Dose: 5 mg Documented by: (1) Fracture of neck of fibula Encounter type: initial encounter Fracture type: closed Laterality: right Qualified Code(s): S82.831A - Other fracture of upper and lower end of right fibula, initial encounter for closed fracture (2) Tibial plateau fracture, right Encounter type: initial encounter Fracture type: closed Qualified Code(s): S82.141A - Displaced bicondylar fracture of right tibia, initial encounter for closed fracture (3) Fall due to ice or snow Encounter type: initial encounter Qualified Code(s): W00.9XXA - Unspecified fall due to ice and snow, initial encounter
[2021-09-05] MEDS: ZOLPIDEM TARTRATE 5 MG TAB PO PRN (21:52)
[2021-09-06] MEDS: ACETAMINOPHEN 325 MG TAB PO SCH ×3 (01:51→14:55)
[2021-09-06] MEDS: LIDOCAINE 5% 1 PATCH TD SCH (08:12)
[2021-09-06] MEDS: ENOXAPARIN INJ 40 MG/0.4 ML SYR SQ SCH (08:12)
--- NOTE | 2021-09-06 10:38 | Discharge Summary ---
Date of Service September 06, 2021 Admission HPI Per Admitting Provider HISTORY OF PRESENT ILLNESS: This is a 60-year-old female with past medical history significant for obesity. Presents with a fall at home. She fell on the deck in the ice and she was having difficulty ambulating and brought in here and found to have right distal femur fracture and tibial plateau fracture. ER discussed with orthopedics who recommended a long splint, which was placed. The patient wanted to go home, but she was also having pain in the shoulder and the right wrist and she was not able to ambulate with a walker. So, we were called for admission. Somewhat tearful that she was not able to go home. She says she was never in the hospital before. About 10 days ago, she almost slipped from the deck and has back pain and she was taking [id number] pain medications. Other than that, she was not taking any other medications. Currently hemodynamics are stable. While resting, pain is okay. Denies any headache. She did not hit her head and no headache, no blurred visions, no runny nose, no sore throat, no cough, no chest pain, no shortness of breath, no nausea, no vomiting, no abdominal pain. Normal bowel and bladder movements. Before the fall, otherwise ambulatory status was good. Admission Exam Per Admitting Provider PHYSICAL EXAMINATION: GENERAL: The patient is of moderate build, not in acute distress. VITAL SIGNS: Temperature 37.2, pulse 74, respiratory rate 18, blood pressure 124/74, oxygen 98% on room air. HEENT: Pupils equal, round and reactive to light. Oral mucosa moist. NECK: No JVD, no neck masses. CARDIOVASCULAR: S1 and S2 heard. Regular rate and rhythm. No murmur, no gallop. RESPIRATORY SYSTEM: Normal AP diameter. No accessory muscle use. No wheezing, no crackles. ABDOMEN: Soft, bowel sounds present, nontender, no distention. CENTRAL NERVOUS SYSTEM: Alert and oriented. No facial droop. Speech is clear. Insight is good. EXTREMITIES: Right lower extremity is in a long splint. Able to move her left lower extremity. No edema seen in the left lower extremity. Principal Diagnosis Mechanical fall on ice Right distal femur fracture Fracture of neck of right fibula Right tibial plateau fracture Discharge Exam Gen: WD/WN, female, NAD, A&O x3 HEENT: Normocephalic, atraumatic, conjunctivae moist, sclerae anicteric, mucous membranes moist. Lung: Clear to Auscultation bilaterally, no wheezes/rales/rhonchi Heart: Regular rate, regular rhythm, no murmurs, rubs, or gallops Abdomen: Soft, NT, ND +BS x 4 Extremities: Right lower extremity splint in place, NVI distally, right wrist brace in place, full active range of motion to right/Left upper extremity, no edema Skin: Warm, no rash, negative turgor. Discharge Data Allergies Allergy/AdvReac Type Severity Reaction Status Date / Time No Known Allergies Allergy Verified 09/03/21 16:21 Consultations 09/03/21 21:43 ED Decision to Admit Stat 09/04/21 10:29 Consult Orthopedic Surgery Routine 1) Tibial plateau fracture, right: On over the fractures with her again at bedside. The main fracture is the tibial plateau fracture. Because of this she will be nonweightbearing for at least 6 weeks. She will be partial weightbearing from 6 weeks to 12 weeks, and then weightbearing as tolerated after 12 weeks. We will follow the fracture closely with serial x-rays. I will see her in the office in 2 weeks for x-rays, at which time we will likely get her out of the posterior splint and put her in a more functional knee brace. She also was nondisplaced fractures at both the proximal and distal ends of the fibula. She has a questionable cortical fracture of the distal radius. She also possibly has a right rotator cuff tear. Fortunately these injuries can be treated nonoperatively. She is orthopedically stable for discharge when medically ready. She will need to be seen by physical therapy and occupational therapy today to work on ADLs and compliance with nonweightbearing status. Full orthopedic discharge instructions were placed in the discharge summary. If you have any further questions please feel free to contact me personally on my cell phone at [phone] Ordered Studies Ankle X-Ray 09/03/21 15:20 XR ankle RT min 3V routine, XR tibia fibula RT 2V, XR knee RT 1 or 2V routine CLINICAL HISTORY: fall, pain. COMPARISON STUDY: No previous studies for comparison. TECHNIQUE: 3 right knee, AP and lateral right tibia and fibula and 3 right ankle views FINDINGS: Bones: There is a comminuted, nondisplaced fracture of the tibial plateau with transverse and vertical component seen particularly medially. There is no evidence for significant cortical offset at the articular margin of the knee joint. There is a moderate size intra-articular effusion. There is a second, oblique fracture present involving the distal fibular metadi aphysis. It is nondisplaced. The remainder of the tibia and fibula are intact. There is no lytic or blastic lesion. Joints: The ankle joint space is maintained. The bones are in anatomic alignment. Soft tissues: There is no focal soft tissue abnormality. There is no radiopaque foreign body. IMPRESSION: 1. Comminuted, nondisplaced fracture involving the tibial plateau. 2. Oblique fracture of the distal femur metadiaphysis. 3. Intra-articular effusion at the knee joint. ACT 112: Negative or not required by law. Electronically signed by: Cem Oconnor M.D. 09/03/2021 4:48 PM Knee X-Ray 09/03/21 15:20 XR ankle RT min 3V routine, XR tibia fibula RT 2V, XR knee RT 1 or 2V routine CLINICAL HISTORY: fall, pain. COMPARISON STUDY: No previous studies for comparison. TECHNIQUE: 3 right knee, AP and lateral right tibia and fibula and 3 right ankle views FINDINGS: Bones: There is a comminuted, nondisplaced fracture of the tibial plateau with transverse and vertical component seen particularly medially. There is no evidence for significant cortical offset at the articular margin of the knee joint. There is a moderate size intra-articular effusion. There is a second, oblique fracture present involving the distal fibular metadiaphysis. It is nondisplaced. The remainder of the tibia and fibula are intact. There is no lytic or blastic lesion. Joints: The ankle joint space is maintained. The bones are in anatomic alignment. Soft tissues: There is no focal soft tissue abnormality. There is no radiopaque foreign body. IMPRESSION: 1. Comminuted, nondisplaced fracture involving the tibial plateau. 2. Oblique fracture of the distal femur metadiaphysis. 3. Intra-articular effusion at the knee joint. ACT 112: Negative or not required by law. Electronically signed by: Cem Oconnor M.D. 09/03/2021 4:48 PM Shoulder X-Ray 09/03/21 15:20 XR shoulder RT min 2V routine CLINICAL HISTORY: Fall, pain. COMPARISON STUDY: No previous studies for comparison. TECHNIQUE: 3 right shoulder views FINDINGS: Bones: Bones are osteopenic. There is no evidence for an acute fracture or dislocation. There is no lytic or blastic lesion. Joints: Mild degenerative changes are seen involving the acromioclavicular joint. The bones are in anatomic alignment. Soft tissues: There is no focal soft tissue abnormality. There is no radiopaque foreign body. IMPRESSION: No acute osseous pathology. Osteopenia with mild degenerative change at the AC joint. ACT 112: Negative or not required by law. Electronically signed by: Cem Oconnor M.D. 09/03/2021 4:57 PM Tibia/Fibula X-Ray 09/03/21 15:20 XR ankle RT min 3V routine, XR tibia fibula RT 2V, XR knee RT 1 or 2V routine CLINICAL HISTORY: fall, pain. COMPARISON STUDY: No previous studies for comparison. TECHNIQUE: 3 right knee, AP and lateral right tibia and fibula and 3 right ankle views FINDINGS: Bones: There is a comminuted, nondisplaced fracture of the tibial plateau with transverse and vertical component seen particularly medially. There is no evidence for significant cortical offset at the articular margin of the knee joint. There is a moderate size intra-articular effusion. There is a second, oblique fracture present involving the distal fibular metadiaphysis. It is nondisplaced. The remainder of the tibia and fibula are intact. There is no lytic or blastic lesion. Joints: The ankle joint space is maintained. The bones are in anatomic alignment. Soft tissues: There is no focal soft tissue abnormality. There is no radiopaque foreign body. IMPRESSION: 1. Comminuted, nondisplaced fracture involving the tibial plateau. 2. Oblique fracture of the distal femur metadiaphysis. 3. Intra-articular effusion at the knee joint. ACT 112: Negative or not required by law. Electronically signed by: Cem Oconnor M.D. 09/03/2021 4:48 PM Wrist X-Ray 09/03/21 15:21 XR wrist RT min 3V routine CLINICAL HISTORY: fall, pain. COMPARISON STUDY: No previous studies for comparison. TECHNIQUE: 4 right wrist views FINDINGS: Bones: There is no evidence for an acute fracture or dislocation. There is no lytic or blastic lesion. Joints: The joint spaces are maintained. The bones are in anatomic alignment. Soft tissues: There is no focal soft tissue abnormality. There is no radiopaque foreign body. IMPRESSION: No acute osseous pathology. ACT 112: Negative or not required by law. Electronically signed by: Cem Oconnor M.D. 09/03/2021 4:[address] 09/03/21 17:11 CT knee RT wo con CLINICAL HISTORY: Follow-up right tibial plateau fracture. Status post fall with right knee pain COMPARISON STUDY: Standard radiographs of the knee from 09/03/2021 CT DOSE: 171.87 mGy.cm TECHNIQUE: Standard CT of the right knee is performed without IV contrast. Multiplanar reconstruction is performed. A dose lowering technique was utilized adhering to the principles of ALARA. FINDINGS: Bones: There is seen radiographically, there is a comminuted, essentially nondisplaced fracture of the tibial plateau. Vertically oriented nondisplaced fractures seen involving the inner aspect of the lateral tibial plateau. It extends posteriorly. Oblique comminuted fracture of the medial tibial plateau is also present which is again essentially nondisplaced. There is also a nondisplaced, impacted fracture of the proximal fibular neck. There are no lytic or blastic lesions. Joints: The joint spaces are maintained. There is a large intra-articular effusion. The bones are in anatomic alignment. Soft tissues: There is no focal soft tissue swelling. There are no focal fluid collections. IMPRESSION: 1. Comminuted, essentially nondisplaced fracture of the tibial plateau as described above. 2. There is also an impacted, nondisplaced fracture of the neck of the fibula. 3. Large intra-articular effusion. ACT 112: Negative or not required by law. Electronically signed by: Cem Oconnor M.D. 09/03/2021 6:44 PM Hospital Course (1) Fall due to ice or snow: (2) Tibial plateau fracture, right: (3) Fracture of neck of fibula: This is a 60-year-old female who is otherwise healthy presented to ED on 09/04/2021 with a fall and found to have right distal femur fracture, tibial plateau fracture, and nondisplaced fracture of the neck of the fibula. She was seen and evaluated by orthopedics placed in a posterior splint. She is nonweightbearing to the right lower extremity. She also has right shoulder pain and there is concern for possible rotator cuff tear. She also has right wrist pain and hand swelling. There was question on if there was a possible impaction fracture of right wrist however x-ray was negative. Orthopedics placed her in a right wrist cock-up splint. She will follow up with orthopedics in 2 weeks. She will remain nonweightbearing for at least 6 weeks and then partial weightbearing 6 to 12 weeks and then weightbearing as tolerated after 12 weeks. She was seen and evaluated by PT and OT and deemed able to return home with appropriate equipment including hemiwalker, wheelchair, bedside commode and a hospital bed. Given the nature of the fractures and nonweightbearing status she is unable to remain standing for prolonged periods of time and therefore requires both hemiwalker and wheelchair. Her pain was well controlled at discharge. She was discharged on oxycodone as needed and encouraged to take Tylenol scheduled. She continues to have right shoulder pain, but overall range of motion feels improved. She will follow up with orthopedics for further evaluation of right shoulder and right wrist. At time of discharge she was in good spirits and is being discharged home. She was able to ambulate with nonweightbearing status of right lower extremity with a hemiwalker. Eating and drinking as normal and her vital signs were stable. She was receiving Lovenox for DVT prophylaxis while in house. Total Time Total Time Spent Total Time Spent (In Minutes): 35 minutes Total Time Includes: Examination of the Patient, Discharge Planning, Medication Reconciliation, Communication With Other Providers and Other Discharge Plan Discharge Items Patient Disposition: Home - Self-Care Reason For Visit: FALL Discharge Diagnosis: Mechanical fall on ice Right distal femur fracture Fracture of neck of right fibula Right tibial plateau fracture Condition on Discharge: Good Activity: Per Instructions section Driving/Machine Use: No Driving Weightbearing: Right non-weightbearing Non-emergency contact: Primary Care Provider and Surgeon Call non-emergency contact if: you have any medication questions, your symptoms worsen, your pain is not controlled, your pain is worsening, your pain is unusual for you, your pain is concerning for you, you have a fever and your temperature is above 101 Follow-up/Referrals: Dale Valdovinos DO [Physician] - 09/20/21 2:30 pm Gurdeep Freeman DO [Primary Care Provider] - 09/13/21 2:20 pm (Date & Time 09/13/2021 2:20 PM Provider Gurdeep Freeman Department Family [facility] ) Diet: Regular Addtl Attending Provider Instructions: MEDICATION CHANGES: Oxycodone 5mg every 4 hours as needed for Severe Pain. Recommend scheduled Tylenol 500mg every 6 hours. You may purchase lidocaine patches [id number] to place on right shoulder for 12 hours on and 12 hours off. If taking oxycodone would recommend taking daily stool softener to prevent constipation. RECOMMENDATIONS FOR FOLLOW-UP: Please follow-up with PCP on 09/13/2021 at 2:20 PM. Please arrive 15 minutes prior to your scheduled appointment. Please follow-up with orthopedics in 2 weeks for further evaluation of right lower extremity fractures and likely splint removal. Stay well-hydrated drinking 60 to 80 ounces of noncaffeinated/nonalcoholic beverages daily. Do not drive until fractures are healed and you are cleared by orthopedics. Please follow strict orthopedic instructions as documented below. OTHER INSTRUCTIONS: Seek medical attention if you have: * temperature above 101 * chest pain or trouble breathing * abdominal pain, nausea, vomiting * diarrhea, dark stools or bloody stools * any unanswered questions or concerns Call 911 if symptoms are severe. Please take good care of yourself. It has been a pleasure taking care of you. Please take care of yourself. If you have any questions regarding your recent hospitalization please contact [facility] and request Andrés Ashantiist @ [phone]. Ena Salazar PA-C [employer]tl [employer]st Provider Instructions: ORTHOPEDIC INSTRUCTIONS Activity Recommendations: Nonweightbearing on the right leg for at least 6 weeks Weight-bear as tolerated on the right upper extremity Medications: Dressing Care: Leave posterior splint in place until follow-up in the office. Showering: Keep the splint clean and dry. Do not get the splint wet. Follow-Up Visit: Follow-up with Dr. Valdovinos in 2 weeks We will change the dressings and get x-rays. He will likely be placed in a more functional knee brace. Please call the office to make an appointment for a time that works for you. Pending Studies at Discharge: No Stand-Alone Forms: My [facility], Smoking Cessation Medications and DC Order Prescriptions: New oxycodone 5 mg tablet 5 mg PO Q4H PRN (Reason: pain) Qty: 18 RF: 0 Discharge Orders: Discharge Order (Routine); Ordered 09/06/21 Ordered By: Ena Tomlin/Other Patient Handouts: Preventing Falls Moving Safely ... Admission Data Admit Date/Time: 09/03/21 22:50 Attending Provider: Robin Joseph Admit Provider: Kian Herrera Primary Care Provider: Gurdeep Freeman Other Providers: Kian Herrera ; Luis Mancera ; Ena Salazar Other Interventions: Discharge Summary Assessment (RN) Last Done: 09/06/21 11:42 Supervising Physician Co-Signing Physician Notes 60-year-old lady with PMH of obesity presented with fall at home and was evaluated by orthopedics for tibial plateau fracture, right. She is to be non weightbearing for at least 6 weeks and partial weightbearing from 6 weeks to 12 weeks and then weightbearing as tolerated after 2 weeks. Will need to follow-up with orthopedics closely as an outpatient, patient made aware. Patient to be discharged on pain medication, will need further communication with her primary care physician for ongoing pain management. Patient was on room air, not in acute distress, right lower extremity with dressing/splint with no soakage and distal neurovascular status normal. Examination as above. I have seen and examined the patient and have discussed the case with the provider above. I agree with the assessment and plan as stated.
[2021-09-06] MEDS: SODIUM CHLORIDE 0.9% 1000ML 1,000 ML IV SCH (13:42)
[2021-09-06] MEDS: oxyCODONE HCL IR 5 MG TAB (IMMEDIATE RELEASE) PO PRN (14:55)
== END 2021-09-06 15:54 | disposition home or self-care (01) | DRG 563 ==
LOC: ED 15:01 → 3E 22:50 → SUATTDRO 22:50 → 3E 09-04 00:27